=== PATIENT | female | born 1970 | race Caucasian/White ===

== ENCOUNTER → 2018-12-18 | Outpatient (CLI) | payer OTHER ==
[2018-12-18 18:29] LABS: Calcium 9.2 mg/dL (8.7-10.3); Magnesium 1.8 mg/dL (1.5-2.4); Phosphorus 4.5 mg/dL (2.4-5.1); Potassium 4.5 mmol/L (3.5-5.5)
== END | disposition home or self-care (01) ==
LOC: LABWHC1 13:58
PROVIDERS: ATTEND Psychiatry & Neurology Neurology
DX: M62.838 Other muscle spasm (principal)
CPT/HCPCS: 36415; 82310; 82607; 83735; 84100; 84132; 84295

== ENCOUNTER 2019-03-03 22:14 | Emergency (ER) | payer OTHER ==
[2019-03-03 22:30] VITALS: TEMP 98.4
[2019-03-03 22:47] LABS: Glucose,Whole Blood 124 mg/dL (75-99)
[2019-03-03] MEDS ORDERED: SODIUM CHLORIDE 0.9% 1,000 ML IV ONE (23:40)
[2019-03-03 23:52] LABS: Basophils % (A) 1 %; Eosinophils # (A) 0.1 k/uL (0-0.7); Eosinophils % (A) 2 %; HCT 37.9 % (34.0-46.0); Lymphocytes # (A) 1.6 k/uL (1.0-4.8); Lymphocytes % (A) 34 %; MCH 29.2 pg (25.0-35.0); MCHC 34.3 g/dL (31.0-37.0); MCV 85.3 fL (80.0-100.0); Mean Platelet Volume 8.1; Monocytes # (A) 0.3 k/uL (0-1.0); Monocytes % (A) 7 %; Neutrophils # (A) 2.4 k/uL (1.3-7.7); Neutrophils % (A) 54 %; Platelet Count 231 k/uL (150-450); RBC 4.45 m/uL (3.80-5.40); RDW 15.8 % (11.5-15.5); WBC 4.5 k/uL (3.8-10.6)
[2019-03-04 00:01] LABS: ALT 15 U/L (4-34); AST 18 U/L (14-36); African American GFR (CKD) >90 (>60 ml/min/1.73 sqM); Alkaline Phosphatase 70 U/L (38-126); Anion Gap 8 mmol/L; Blood Urea Nitrogen 14 mg/dL (7-17); Calcium 9.6 mg/dL (8.4-10.2); Carbon Dioxide 25 mmol/L (22-30); Chloride 106 mmol/L (98-107); Glucose 102 mg/dL (74-99); Non-African American GFR(CKD) >90 (>60 ml/min/1.73 sqM); Sodium 139 mmol/L (137-145); Total Bilirubin 0.3 mg/dL (0.2-1.3); Total Protein 6.8 g/dL (6.3-8.2)
[2019-03-04] MEDS ORDERED: ONDANSETRON 4 MG ODT STARTER PACK 2 TAB BTL PO STA (01:18)
--- NOTE | 2019-03-04 01:18 | ED ---
Recheck HPI - General Chief Complaint: Recheck/Abnormal Lab/Rx Stated Complaint: Rectal Bleeding Time Seen by Provider: 03/03/19 22:35 Source: patient Mode of arrival: ambulatory Limitations: no limitations - History of Present Illness Initial Comments: Deborah is an obese 48-year-old female who presents the ER today for evaluation of multiple complaints primary patient is concerned that she is dehydrated. Patient reports she is just not been feeling well she hasn't been eating or drinking well for 2-3 weeks. She states that she weighed herself 2 weeks ago and was 243 pounds but today was only 231. She states that she's been drinking plenty of fluids but just doesn't have any appetite for solid foods. She denies any abdominal pain does report some nausea but states even the thought of food makes her feel somewhat nauseated. She's had no episodes of vomiting. Patient also notes that with her bowel movements she has noticed some bright red bleeding when wiping and has never had this in the past and has no history of hemorrhoids that she is aware of. - Related Data Home Medications Medication Instructions Recorded Confirmed Cyclobenzaprine [Flexeril] 20 mg PO HS 06/02/14 08/26/14 Desvenlafaxine Succinate [Pristiq 50 mg PO HS 06/02/14 08/26/14 ER] Folic Acid 1 mg PO DAILY 06/02/14 08/26/14 Hydrocodone/Acetaminophen [[place] 1 each PO Q6H PRN 06/02/14 08/26/14 10-325] Ibuprofen [Motrin] 800 mg PO Q8HR PRN 06/02/14 08/26/14 Lurasidone [Latuda] 40 mg PO HS 06/02/14 08/26/14 Methotrexate Sodium [Methotrexate] 200 mg PO MURPHY 06/02/14 08/26/14 Oxybutynin Chloride [Ditropan] 5 mg PO BID 06/02/14 08/26/14 Pregabalin [Lyrica] 150 mg PO BID 06/02/14 08/26/14 Timolol 0.25% Ophth Soln [Timoptic] 1 drop BOTH EYES BID 06/02/14 08/26/14 Allergies Allergy/AdvReac Type Severity Reaction Status Date / Time No Known Allergies Allergy Verified 03/03/19 22:30 Review of Systems ROS Statement: Those systems with pertinent positive or pertinent negative responses have been documented in the HPI. ROS Other: All systems not noted in ROS Statement are negative. Past Medical History Past Medical History: Rheumatoid Arthritis (RA) Additional Past Medical History / Comment(s): CARPAL TUNNEL AMANDA. Overactive Bladder. OPEN ANGLE GLAUCOMA History of Any Multi-Drug Resistant Organisms: None Reported Past Surgical History: Orthopedic Surgery Additional Past Surgical History / Comment(s): bilateral hand Past Psychological History: Bipolar, Depression Smoking Status: Current every day smoker Past Alcohol Use History: None Reported Past Drug Use History: None Reported General Exam - General Exam Comments Initial Comments: Physical Exam GENERAL: Patient is well-developed and well-nourished. Patient is nontoxic and well- hydrated and is in no distress. HENT: Normocephalic, Atraumatic. EYES: PERRL, EOMI PULMONARY: Unlabored respirations. No audible rales rhonchi or wheezing was noted. CARDIOVASCULAR: There is a regular rate and rhythm without any murmurs gallops or rubs. ABDOMEN: Soft and nontender with normal bowel sounds. SKIN: Skin is clear with no lesions or rashes and otherwise unremarkable. : To exam with internal and external hemorrhoids, some blood noted on hemorrhoid no active bleeding NEUROLOGIC: Patient is alert and oriented x3. Moving all extremities spontaneously MUSCULOSKELETAL: Normal extremities with adequate strength and full range of motion. No lower extremity swelling or edema. No calf tenderness. PSYCHIATRIC: Normal psychiatric evaluation. Limitations: no limitations Course Vital Signs 03/03/19 03/04/19 22:25 01:38 Temperature 98.4 F 98.4 F Pulse Rate 96 67 Respiratory 18 15 Rate Blood Pressure 127/77 108/82 O2 Sat by Pulse 99 99 Oximetry Medical Decision Making - Medical Decision Making The patient was seen and evaluated, history is obtained from the patient Physical exam is relatively unremarkable patient's abdomen is soft nontender she does not appear dehydrated labs were obtained and results ofsignificant abnormalities patient did receive IV fluids and reported feeling better upon reevaluation she was sleeping comfortably. Patient will be discharged home with some Zofran and advised follow-up with her primary care physician for reeva luation. - Lab Data Result diagrams: 03/03/19 22:40 03/03/19 22:40 Lab Results 01/04/20 01/04/20 01/04/20 Range/Units 22:40 22:40 22:45 WBC 4.5 (3.8-10.6) k/uL RBC 4.45 (3.80-5.40) m/uL Hgb 13.0 (11.4-16.0) gm/dL Hct 37.9 (34.0-46.0) % MCV 85.3 (80.0-100.0) fL MCH 29.2 (25.0-35.0) pg MCHC 34.3 (31.0-37.0) g/dL RDW 15.8 H (11.5-15.5) % Plt Count 231 (150-450) k/uL Neutrophils % 54 % Lymphocytes % 34 % Monocytes % 7 % Eosinophils % 2 % Basophils % 1 % Neutrophils # 2.4 (1.3-7.7) k/uL Lymphocytes # 1.6 (1.0-4.8) k/uL Monocytes # 0.3 (0-1.0) k/uL Eosinophils # 0.1 (0-0.7) k/uL Basophils # 0.0 (0-0.2) k/uL Sodium 139 (137-145) mmol/L Potassium 4.0 (3.5-5.1) mmol/L Chloride 106 (98-107) mmol/L Carbon Dioxide 25 (22-30) mmol/L Anion Gap 8 mmol/L BUN 14 (7-17) mg/dL Creatinine 0.70 (0.52-1.04) mg/dL Est GFR (CKD-EPI)AfAm >90 (>60 ml/min/1.73 sqM) Est GFR (CKD-EPI)NonAf >90 (>60 ml/min/1.73 sqM) Glucose 102 H (74-99) mg/dL POC Glucose (mg/dL) 124 H (75-99) mg/dL POC Glu Bridge Crane Operator ID Fetterly, Padmaja Calcium 9.6 (8.4-10.2) mg/dL Magnesium 2.0 (1.6-2.3) mg/dL Total Bilirubin 0.3 (0.2-1.3) mg/dL AST 18 (14-36) U/L ALT 15 (4-34) U/L Alkaline Phosphatase 70 (38-126) U/L Total Protein 6.8 (6.3-8.2) g/dL Albumin 4.0 (3.5-5.0) g/dL Disposition Clinical Impression: Nausea, Bleeding hemorrhoid Disposition: HOME SELF-CARE Condition: Stable Instructions (If sedation given, give patient instructions): Hemorrhoids (ED), Acute Nausea and Vomiting (ED) Is patient prescribed a controlled substance at d/c from ED?: No Referrals: Marcos Coppola DO [Primary Care Provider] - 1-2 days
[2019-03-04 01:41] VITALS: BP 108/82; PULSE 67; RESP 15
== END 2019-03-04 01:38 | disposition home or self-care (01) ==
LOC: EC 22:14
DX: K64.4 Residual hemorrhoidal skin tags (principal); K64.8 Other hemorrhoids; R11.0 Nausea; M06.9 Rheumatoid arthritis, unspecified; F31.9 Bipolar disorder, unspecified; F17.200 Nicotine dependence, unspecified, uncomplicated; Z79.899 Other long term (current) drug therapy
CPT/HCPCS: 36415; 80053; 83735; 85025; 99283; 96360; 96361; S0119

== ENCOUNTER → 2020-06-09 | Outpatient (CLI) | payer OTHER ==
--- NOTE | 2020-06-09 14:40 | MM ---
Reason for exam: screening (asymptomatic). Baseline mammogram. Physical Findings: Nurse Summary: 1.5cm nodule in the right breast at 2 o'clock (nurse db). MG 3D Diag Mammo W/Cad AMANDA Bilateral CC and MLO view(s) were taken. The breast tissue is heterogeneously dense. This may lower the sensitivity of mammography. Finding: There is a 16 mm oval mass in the right breast. Small nodularity in the left breast upper outer quadrant. These results were verbally communicated with the patient and result sheet given to the patient on 06/09/20. ASSESSMENT: Incomplete: need additional imaging evaluation, BI-RAD 0 RECOMMENDATION: Ultrasound of both breasts.
--- NOTE | 2020-06-09 14:50 | USB ---
Reason for exam: additional evaluation requested from abnormal screening. Physical Findings: Breast exam preformed at baseline screening. US Breast BILAT Technologist: Joanna Michelle Right complete breast ultrasound includes all four quadrants, the retroareolar region and axilla. Finding demonstrates a 0.8 x 0.7 x 0.7cm round lesion at 2 o'clock, a 1.2 x 0.7 x 0.6cm oval lesion at 2 o'clock, a 2.1 x 1.5 x 1.2cm irregular, hypoechoic lesion at 4 o'clock non-simple cyst versus solid mass, FNA +/- biopsy advised, a 1.7 x 1.1 x 0.5cm oval, lobular, mixed lesion at 5 o'clock, a 0.8 x 0.5 x 0.6cm round, mixed lesion at 5 o'clock, 2.3 x 1.1 x 0.9cm cortical thickening at the axilla and a 1.5 x 0.8 x 0.8cm lymph node with cortical thickening 4.6mm at 11 o'clock. Advise sampling one of right axillary lymph nodes if persists. Left complete breast ultrasound includes all four quadrants, the retroareolar region and axilla. Finding demonstrates a 1.2 x 1.0 x 0.5cm lesion at 1 o'clock, a 0.5 x 0.5 x 0.4cm benign lymph node at 2 o'clock, a 0.9 x 0.5 x 0.5cm lobular lesion at 7 o'clock no vascularity through transmission and a 1.1 x 0.8 x 0.5cm oval lesion at 1 o'clock. These results were verbally communicated with the patient and result sheet given to the patient on 06/09/20. ASSESSMENT: Suspicious, BI-RAD 4 RECOMMENDATION: Aspiration of the right breast. Ultrasound core biopsy of both breasts. (right 4 o'clock, right axilla, left 7 o'clock) Called Dr. Portillo's office with mammographic findings and has scheduled an appointment for the patient for 06/20/20 at 12:[address] Guerra. Biopsy scheduled for 06/23/20 at 1:00. PRELIMINARY REPORT CALLED AND FAXED TO DR. GUERRA ON 06/09/20.
== END | disposition home or self-care (01) ==
LOC: RADMAMWWP 08:58
PROVIDERS: ATTEND Internal Medicine
DX: N63.10 Unspecified lump in the right breast, unspecified quadrant (principal); N63.20 Unspecified lump in the left breast, unspecified quadrant
CPT/HCPCS: 77066; 76641; G0279; 77062

== ENCOUNTER 2023-01-16 13:58 | Emergency (ER) | payer OTHER ==
[2023-01-16 14:17] VITALS: BP 160/98; PULSE 96; RESP 18; TEMP 98
[2023-01-16] MEDS ORDERED: ALPRAZolam 1 MG TAB PO STA ×2 (14:23→14:31)
--- NOTE | 2023-01-16 14:31 | ED ---
General Adult HPI - General Chief complaint: Psychiatric Symptoms Stated complaint: anxiety Time Seen by Provider: 01/16/23 14:09 Source: patient, RN notes reviewed Mode of arrival: ambulatory Limitations: no limitations - History of Present Illness Initial comments: Patient is a pleasant 52-year-old female presenting to the emergency department with concerns for her anxiety. He should has chronic anxiety. Patient states last time she was at her doctor's office she got into it with the nurse and her doctor said he would no longer be her doctor. Patient is requesting anxiety medicine. Patient states she is on Xanax 2 mg. Patient has gotten a new doctor however not able to get in yet. Patient does have an oncologist and will try to follow-up with him for further anxiety medication. - Related Data Home Medications Medication Instructions Recorded Confirmed Desvenlafaxine Succinate [Pristiq 50 mg PO HS 06/02/14 06/30/22 ER] Ibuprofen [Motrin] 800 mg PO Q8HR PRN 06/02/14 06/30/22 Lurasidone [Latuda] 40 mg PO HS 06/02/14 06/30/22 ALPRAZolam [Xanax] 1 mg PO Q8H PRN 06/09/22 06/30/22 Lactulose 10 gm PO DIRECTED PRN 06/09/22 06/30/22 Omeprazole [PriLOSEC] 10 mg PO DAILY 06/09/22 06/30/22 buPROPion [Wellbutrin] 75 mg PO BID 06/09/22 06/30/22 oxyCODONE-APAP 10-325MG [Percocet 1 tab PO Q6HR PRN 06/09/22 06/30/22 10-325 mg] Allergies Allergy/AdvReac Type Severity Reaction Status Date / Time No Known Allergies Allergy Verified 01/16/23 14:08 Review of Systems ROS Statement: Those systems with pertinent positive or pertinent negative responses have been documented in the HPI. ROS Other: All systems not noted in ROS Statement are negative. Constitutional: Denies: fever Eyes: Denies: eye pain ENT: Denies: ear pain Cardiovascular: Denies: chest pain Psychiatric: Reports: anxiety Past Medical History Past Medical History: Asthma, Cancer, GERD/Reflux, Rheumatoid Arthritis (RA) Additional Past Medical History / Comment(s): CARPAL TUNNEL AMANDA. Overactive Bladder. OPEN ANGLE GLAUCOMA, Breast Cancer 2021 History of Any Multi-Drug Resistant Organisms: None Reported Past Surgical History: Orthopedic Surgery Additional Past Surgical History / Comment(s): bilateral hand Past Anesthesia/Blood Transfusion Reactions: No Reported Reaction Past Psychological History: Bipolar, Depression Smoking Status: Current some day smoker Past Alcohol Use History: None Reported Past Drug Use History: Marijuana General Exam Limitations: no limitations General appearance: alert Head exam: Present: normocephalic Eye exam: Present: normal appearance Neck exam: Present: normal inspection Respiratory exam: Present: normal lung sounds bilaterally Cardiovascular Exam: Present: regular rate, normal rhythm GI/Abdominal exam: Present: soft. Absent: tenderness Extremities exam: Present: normal inspection Neurological exam: Present: alert Psychiatric exam: Present: anxious Skin exam: Present: normal color Course Vital Signs 01/16/23 14:04 Temperature 98.0 F Pulse Rate 96 Respiratory 18 Rate Blood Pressure 160/98 O2 Sat by Pulse 98 Oximetry Medical Decision Making - Medical Decision Making Was pt. sent in by a medical professional or institution (, PA, WELCOME DESK AGENT, urgent care, hospital, or jail...) When possible be specific @ -No Did you speak to anyone other than the patient for history (EMS, parent, family, police, friend...)? What history was obtained from this source @ -No Did you review nursing and triage notes (agree or disagree)? Why? @ -I reviewed and agree with nursing and triage notes Were old charts reviewed (outside hosp., previous admission, EMS record, old EKG, old radiological studies, urgent care reports/EKG's, jail records)? Report findings @ -Previous medications reviewed Differential Diagnosis (chest pain, altered mental status, abdominal pain women, abdominal pain men, vaginal bleeding, weakness, fever, dyspnea, syncope, headache, dizziness, GI bleed, back pain, seizure, CVA, palpatations, mental health, musculoskeletal)? @ -Differential Mental Health Depression, anxiety, bipolar, psychosis, schizophrenia, borderline personality, situational depression, adjustment disorder, behavioral disorder, brain tumor, malingering, substance abuse, encephalopathy, medication reaction, dementia, hypothyroidism, degenerative neurologic disorder, lupus.... This is not meant to be all-inclusive list EKG interpreted by me (3pts min.). @ -As above X-rays interpreted by me (1pt min.). @ -None done CT interpreted by me (1pt min.). @ -None done U/S interpreted by me (1pt. min.). @ -None done What testing was considered but not performed or refused? (CT, X-rays, U/S, labs)? Why? @ -None What meds were considered but not given or refused? Why? @ -None Did you discuss the management of the patient with other professionals (professionals i.e. DrDonnie, PA, WELCOME DESK AGENT, lab, RT, psych nurse, social worker health services, cartography professor, teacher, electorate officer, case management assistant)? Give summary @ -No Was smoking cessation discussed for >3mins.? @ -No Was critical care preformed (if so, how long)? @ -No Were there social determinants of health that impacted care today? How? (Homelessness, low income, unemployed, alcoholism, drug addiction, transportation, low edu. Level, literacy, decrease access to med. care, fdc, rehab)? @ -No Was there de-escalation of care discussed even if they declined (Discuss DNR or withdrawal of care, Hospice)? DNR status @ -No What co-morbidities impacted this encounter? (DM, HTN, Smoking, COPD, CAD, Cancer, CVA, ARF, Chemo, Hep., AIDS, mental health diagnosis, sleep apnea, morbi d obesity)? @ -None Was patient admitted / discharged? Hospital course, mention meds given and route, prescriptions, significant lab abnormalities, going to OR and other pertinent info. @ -Discussion had with patient. Patient will be given Xanax 2 mg and advised to take only half of it at this time. Patient given an extra 2 mg of Xanax to take home. Patient advised to cut this in half and wean herself off. Patient does have an appointment with oncology Tuesday and advised to discuss this with her doctor that point. Undiagnosed new problem with uncertain prognosis? @ -No Drug Therapy requiring intensive monitoring for toxicity (Heparin, Nitro, Insulin, Cardizem)? @ -No Were any procedures done? @ -No Diagnosis/symptom? @ -Anxiety Acute, or Chronic, or Acute on Chronic? @ -Acute Uncomplicated (without systemic symptoms) or Complicated (systemic symptoms)? @ -default Side effects of treatment? @ -No Exacerbation, Progression, or Severe Exacerbation? @ -No Poses a threat to life or bodily function? How? (Chest pain, USA, MS, pneumonia, PE, COPD, DKA, ARF, appy, cholecystitis, CVA, Diverticulitis, Homicidal, Suicidal, threat to staff... and all critical care pts) @ -No Disposition Clinical Impression: Acute anxiety Disposition: HOME SELF-CARE Condition: Stable Instructions (If sedation given, give patient instructions): Generalized Anxiety Disorder (ED) Additional Instructions: Please follow-up with oncology Tuesday as planned. Have discussion with your doctor at that point regarding medication. Please do follow-up with her new primary care physician in the next one or 2 days for recheck and discuss medication at that point as well. Return for worsening symptoms, thoughts of self-harm or other concerns. Is patient prescribed a controlled substance at d/c from ED?: No Referrals: None,Stated [Primary Care Provider] - 1-2 days Andres Epstein [STAFF PHYSICIAN] - 1-2 days Lukas Marshall MD [STAFF PHYSICIAN] - 1-2 days Forms: Area PCPs Time of Disposition: 14:31
== END 2023-01-16 14:50 | disposition home or self-care (01) ==
LOC: EC 13:58
DX: F41.9 Anxiety disorder, unspecified (principal); J45.909 Unspecified asthma, uncomplicated; F31.9 Bipolar disorder, unspecified; K21.9 Gastro-esophageal reflux disease without esophagitis; F17.200 Nicotine dependence, unspecified, uncomplicated; Z79.899 Other long term (current) drug therapy
CPT/HCPCS: 99285

== ENCOUNTER 2024-05-23 14:03 | Emergency (ER) | payer MEDICARE, OTHER ==
[2024-05-23 14:10] VITALS: TEMP 98.4
--- NOTE | 2024-05-23 16:26 | ED ---
General Adult HPI - General Chief complaint: Extremity Problem,Nontraumatic Stated complaint: R arm edema Time Seen by Provider: 05/23/24 14:26 Source: patient Mode of arrival: ambulatory Limitations: no limitations - History of Present Illness Initial comments: Patient is a 54-year-old female with a past medical history of metastatic breast cancer presenting today for right upper extremity swelling. Patient states she had a biopsy of her right axilla done 3 weeks ago and ever since then she has had worsening right upper extremity swelling. Over last 2 days she has had worsening pain in the right upper extremity and axilla uncontrolled with home Percocet. She was sent in by her PCP out of concern for infection at the surgical site. Patient denies fevers chills, nausea vomiting, chest pain or shortness of breath, abdominal pain. No history prior PE/DVT, no hemoptysis, is a non-smoker. States she does have a recurrence of her breast cancer. The biopsy that was recently done and a scheduled for outpatient PET scan. There is been no redness or discharge from her recent surgical site - Related Data Home Medications Medication Instructions Recorded Confirmed Desvenlafaxine Succinate [Pristiq 50 mg PO HS 06/02/14 06/30/22 ER] Ibuprofen [Motrin] 800 mg PO Q8HR PRN 06/02/14 06/30/22 Lurasidone [Latuda] 40 mg PO HS 06/02/14 06/30/22 ALPRAZolam [Xanax] 1 mg PO Q8H PRN 06/09/22 06/30/22 Lactulose 10 gm PO DIRECTED PRN 06/09/22 06/30/22 Omeprazole [PriLOSEC] 10 mg PO DAILY 06/09/22 06/30/22 buPROPion [Wellbutrin] 75 mg PO BID 06/09/22 06/30/22 oxyCODONE-APAP 10-325MG [Percocet 1 tab PO Q6HR PRN 06/09/22 06/30/22 10-325 mg] Allergies Allergy/AdvReac Type Severity Reaction Status Date / Time morphine Allergy Rash/Hives Verified 05/23/24 16:08 Review of Systems ROS Statement: Those systems with pertinent positive or pertinent negative responses have been documented in the HPI. ROS Other: All systems not noted in ROS Statement are negative. Past Medical History Past Medical History: Asthma, Cancer, GERD/Reflux, Rheumatoid Arthritis (RA) Additional Past Medical History / Comment(s): CARPAL TUNNEL AMANDA. Overactive Bladder. OPEN ANGLE GLAUCOMA, Breast Cancer 2021 History of Any Multi-Drug Resistant Organisms: None Reported Past Surgical History: Orthopedic Surgery Additional Past Surgical History / Comment(s): bilateral hand Past Anesthesia/Blood Transfusion Reactions: No Reported Reaction Past Psychological History: Bipolar, Depression Smoking Status: Current some day smoker Past Alcohol Use History: None Reported Past Drug Use History: Marijuana General Exam - General Exam Comments Initial Comments: PE: CONSTITUTIONAL: [no apparent distress, well appearing tearful] SKIN: [warm, dry, no jaundice, hives or petechiae, no overlying erythema of the right upper extremity, biopsy site was evaluated with carpenter's helper, Yessica RN, no palpable fluctuance no erythema, no drainage shows well-healing incision small mount of bruising present lymphadenopathy palpable] EYES:[ pupils are equally round, extraocular movements intact without nystagmus, clear conjunctiva, non-icteric sclera] HENT: [normocephalic, atraumatic, moist mucus membranes, oropharynx clear without exudates] NECK: , [Full range of motion, normal appearance] PULMONARY: [clear to auscultation without wheezes, rhonchi, or rales, normal excursion, no accessory muscle use and no stridor] CARDIOVASCULAR:[ regular rate, rhythm, normal S1 and S2. No appreciated murmurs, rubs or gallops. Strong radial pulses with intact distal perfusion. No lower extremity edema] GASTROINTESTINAL: [soft, active bowel sounds throughout, non-tender, non- distended, no palpable masses, no rebound or guarding. No hepatosplenomegaly] GENITOURINARY: MUSCULOSKELETAL: [Extremities have no gross deformity, no edema, redness, or swelling. No calf swelling ] NEUROLOGIC: [_a/o x 3, GCS 15, normal mentation and speech. Moves all extremities x 4 without motor or sensory deficit] PSYCHIATRIC:[ _normal mood and affect, thought process is clear and linear] Limitations: no limitations Course Vital Signs 05/23/24 14:07 Temperature 98.4 F Pulse Rate 80 Respiratory 17 Rate Blood Pressure 123/76 O2 Sat by Pulse 96 Oximetry Medical Decision Making - Medical Decision Making Was pt. sent in by a medical professional or institution (Dr., PA, DIELECTRIC TESTING MACHINE OPERATOR, urgent care, hospital, or [facility]...) When possible be specific @Patient by her primary care provider for infection rule out due to right upper extremity swelling Did you speak to anyone other than the patient for history (EMS, parent, family, police, friend...)? What history was obtained from this source @ -[No] Did you review nursing and triage notes (agree or disagree)? Why? @ -[I reviewed nursing and triage notes] Were old charts reviewed (outside hosp., previous admission, EMS record, old EKG, old radiological studies, urgent care reports/EKG's, [facility] records)? Report findings @ -[Medical records reviewed]Recent imaging most recent imaging was a breast ultrasound on 06/09/2020, ultimately lesions were noted and sampling of the right axillary lymph nodes was recommended Differential Diagnosis (chest pain, altered mental status, abdominal pain women, abdominal pain men, vaginal bleeding, weakness, fever, dyspnea, syncope, headache, dizziness, GI bleed, back pain, seizure, CVA, palpatations, mental health, musculoskeletal)? @Differential diagnose remains broad over top considerations include DVT, cellulitis, lymphedema, abscess this is not all-inclusive list EKG interpreted by me (3pts min.). @ -[As above] X-rays interpreted by me (1pt min.). @ -[None done] CT interpreted by me (1pt min.). @ -[None done] U/S interpreted by me (1pt. min.). @ -[None done] What testing was considered but not performed or refused? (CT, X-rays, U/S, labs)? Why? @ -[None] What meds were considered but not given or refused? Why? @ -[None] Did you discuss the management of the patient with other professionals (professionals i.e. , PA, DIELECTRIC TESTING MACHINE OPERATOR, lab, RT, psych nurse, social media marketing manager, fire extinguisher repairer, teacher, aboriginal home school liaison officer, shoe parts caser)? Give summary @ -[No] Was smoking cessation discussed for >3mins.? @ -[No] Was critical care preformed (if so, how long)? @ -[No] Were there social determinants of health that impacted care today? How? (Homelessness, low income, unemployed, alcoholism, drug addiction, transportation, low edu. Level, literacy, decrease access to med. care, correction, rehab)? @ -[No] Was there de-escalation of care discussed even if they declined (Discuss DNR or withdrawal of care, Hospice)? @ -[No] What co-morbidities impacted this encounter? (DM, HTN, Smoking, COPD, CAD, Cancer, CVA, ARF, Chemo, Hep., AIDS, mental health diagnosis, sleep apnea, morbid obesity)? @ -[None] Was patient admitted / discharged? Hospital course, mention meds given and route, prescriptions, significant lab abnormalities, going to OR and other pertinent info. @ -[hospital course] this is a pleasant 54 female presenting for atraumatic right upper extremity swelling. Plan for ultrasound DVT in right axilla, basic labs, pain control Undiagnosed new problem with uncertain prognosis? @ -[No] Drug Therapy requiring intensive monitoring for toxicity (Heparin, Nitro, Insulin, Cardizem)? @ -[No] Were any procedures done? @ -[No] Diagnosis/symptom? @ -[default] Acute, or Chronic, or Acute on Chronic? @ -[default] Uncomplicated (without systemic symptoms) or Complicated (systemic symptoms)? @ -[default] Side effects of treatment? @ -[No] Exacerbation, Progression, or Severe Exacerbation? @ -[No] Poses a threat to life or bodily function? How? (Chest pain, [place], NH, pneumonia, PE, COPD, DKA, ARF, appy, cholecystitis, CVA, Diverticulitis, Homicidal, Suicidal, threat to staff... and all critical care pts) @ -[No] - Lab Data Result diagrams: 05/23/24 16:36 05/23/24 16:36 Lab Results 05/23/24 05/23/24 05/23/24 Range/Units 16:36 16:36 16:36 WBC 4.2 (3.8-10.6) k/uL RBC 4.87 (3.80-5.40) m/uL Hgb 14.6 (11.4-16.0) gm/dL Hct 43.5 (34.0-46.0) % MCV 89.4 (80.0-100.0) fL MCH 29.9 (25.0-35.0) pg MCHC 33.5 (31.0-37.0) g/dL RDW 12.8 (11.5-15.5) % Plt Count 271 (150-450) k/uL MPV 7.2 Neutrophils % 63 % Lymphocytes % 27 % Monocytes % 6 % Eosinophils % 2 % Basophils % 0 % Neutrophils # 2.7 (1.3-7.7) k/uL Lymphocytes # 1.1 (1.0-4.8) k/uL Monocytes # 0.2 (0-1.0) k/uL Eosinophils # 0.1 (0-0.7) k/uL Basophils # 0.0 (0-0.2) k/uL PT 9.9 L (10.0-12.5) sec INR 0.9 (<1.2) APTT 23.3 (22.0-30.0) sec Sodium 139 (137-145) mmol/L Potassium 4.7 (3.5-5.1) mmol/L Chloride 101 (98-107) mmol/L Carbon Dioxide 31 H (22-30) mmol/L Anion Gap 7 mmol/L BUN 19 H (7-17) mg/dL Creatinine 0.66 (0.52-1.04) mg/dL Est GFR (CKD-EPI)AfAm >90 (>60 ml/min/1.73 sqM) Est GFR (CKD-EPI)NonAf >90 (>60 ml/min/1.73 sqM) Glucose 72 L (74-99) mg/dL Calcium 9.8 (8.4-10.2) mg/dL Total Bilirubin 0.3 (0.2-1.3) mg/dL AST 16 (14-36) U/L ALT 14 (4-34) U/L Alkaline Phosphatase 59 (38-126) U/L C-Reactive Protein <0.5 (<1.0) mg/dL Total Protein 7.3 (6.3-8.2) g/dL Albumin 4.5 (3.5-5.0) g/dL Disposition Clinical Impression: Swelling of right upper extremity, Lymphedema Disposition: HOME SELF-CARE Condition: Stable Instructions (If sedation given, give patient instructions): Lymphedema (ED) Additional Instructions: Every disease is a spectrum and a small chance still exists that a serious condition could develop, for this reason, please monitor yourself closely for new, changing or worsening symptoms, symptoms that do not improve in 48 hours, redness, discharge or swelling in your area of pain difficulty in breathing or coughing up blood, fever, inability to tolerate/keep down fluids or your medications, inability to follow up with outpatient providers as instructed and should you experience these symptoms or should you have any further concerns for your wellbeing please return to the ED or call 911 immediately. PLEASE call your primary care physician as soon as possible to arrange / discuss plan for followup appointment. Appointment in the next 1-3 days is strongly encouraged if possible. PLEASE let us know here before you leave if there is anything further we can do to be of any assistance. Take care and feel Better! Is patient prescribed a controlled substance at d/c from ED?: No Referrals: Mani Malik MD [Primary Care Provider] - 1-2 days
[2024-05-23] MEDS: clonazePAM 0.5 MG TAB PO STA (16:28)
[2024-05-23] MEDS: HYDROmorphone 1 MG/ML 1 ML SYRINGE IVP STA ×2 (16:29→19:02)
[2024-05-23] MEDS: ONDANSETRON 4 MG/2 ML VIAL IVP STA (16:29)
[2024-05-23 16:45] LABS: Basophils % (A) 0 %; Eosinophils # (A) 0.1 k/uL (0-0.7); Eosinophils % (A) 2 %; HCT 43.5 % (34.0-46.0); HGB 14.6 gm/dL (11.4-16.0); Lymphocytes # (A) 1.1 k/uL (1.0-4.8); Lymphocytes % (A) 27 %; MCH 29.9 pg (25.0-35.0); MCHC 33.5 g/dL (31.0-37.0); MCV 89.4 fL (80.0-100.0); Mean Platelet Volume 7.2; Monocytes # (A) 0.2 k/uL (0-1.0); Monocytes % (A) 6 %; Neutrophils # (A) 2.7 k/uL (1.3-7.7); Neutrophils % (A) 63 %; Platelet Count 271 k/uL (150-450); RBC 4.87 m/uL (3.80-5.40); RDW 12.8 % (11.5-15.5); WBC 4.2 k/uL (3.8-10.6)
[2024-05-23 17:00] LABS: ALT 14 U/L (4-34); AST 16 U/L (14-36); African American GFR (CKD) >90 (>60 ml/min/1.73 sqM); Albumin 4.5 g/dL (3.5-5.0); Alkaline Phosphatase 59 U/L (38-126); Anion Gap 7 mmol/L; Blood Urea Nitrogen 19 mg/dL (7-17); C Reactive Protein <0.5 mg/dL (<1.0); Calcium 9.8 mg/dL (8.4-10.2); Carbon Dioxide 31 mmol/L (22-30); Chloride 101 mmol/L (98-107); Glucose 72 mg/dL (74-99); INR 0.9 (<1.2); Non-African American GFR(CKD) >90 (>60 ml/min/1.73 sqM); Partial Thromboplastin Time 23.3 sec (22.0-30.0); Potassium 4.7 mmol/L (3.5-5.1); Prothrombin Time 9.9 sec (10.0-12.5); Sodium 139 mmol/L (137-145); Total Bilirubin 0.3 mg/dL (0.2-1.3); Total Protein 7.3 g/dL (6.3-8.2)
--- NOTE | 2024-05-23 17:41 | US ---
EXAMINATION TYPE: US venous doppler duplex UE RT DATE OF EXAM: 05/23/2024 COMPARISON: NONE CLINICAL INDICATION: Female, 54 years old with history of RUE swelling s/p lymph node biopsy; RUE swe lling. No hx of DVT. Patient does not take blood thinners. Patient states she has metastatic breast c ancer. She had a lymph node biopsy in her axilla about a month ago. TECHNIQUE: Grayscale, color Doppler and spectral Doppler imaging of the upper extremity. SIDE PERFORMED: Right VESSELS IMAGED: IJV Subclavian Vein Axilla Vein Brachial Vein(s) Radial Paired Veins Ulnar Paired Veins Cephalic Vein* Basilic Vein* (*superficial vessels) FINDINGS: Right Arm: Exam is extremely limited due to swelling of the arm. Subclavian vein appears small- limited visibility and evaluation of subclavian vein. Difficult to get wall to wall color filling in subclavian. ?Consider additional imaging modality to evaluate. IMPRESSION: Nondiagnostic evaluation of the right subclavian vein. Other venous structures of the rig ht upper extremity show no acute deep or superficial venous thrombosis. [facility], , 05/23/2024 5:38 PM
--- NOTE | 2024-05-23 17:44 | US ---
EXAMINATION TYPE: US axilla RT DATE OF EXAM: 05/23/2024 COMPARISON: NONE CLINICAL INDICATION: Female, 54 years old with history of RUE swell s/p lymph node biopsy, eval for a bscess; Patient had lymph node biopsy at outside facility about a month ago. R/O abscess. Patient sta janet she has metastatic breast cancer. TECHNIQUE: FINDINGS: Scanned right axilla. -Hypoechoic area seen with minimal vascularity: 2.2 x 1.8 x 1.9 cm. Cortex measures 10 mm. -Second hypoechoic area seen with hyperechoic center: 1.4 x 1.3 x 0.8 cm. -Hypoechoic area with posterior shadowing seen superior to other measured areas: 0.8 x 0.9 x 0.9 cm. IMPRESSION: Suspicious abnormal lymph nodes in the right axilla are present worrisome for malignancy . Correlate with biopsy results. No well-formed fluid collection or abscess is present. [facility], , 05/23/2024 5:42 PM
[2024-05-23 19:14] VITALS: BP 122/79; PULSE 96; RESP 20
== END 2024-05-23 19:14 | disposition home or self-care (01) ==
LOC: EC 14:03
DX: I89.0 Lymphedema, not elsewhere classified (principal); F17.200 Nicotine dependence, unspecified, uncomplicated; Z88.5 Allergy status to narcotic agent
CPT/HCPCS: 99285; 96374; 96375; 96376; 36415; 80053; 85025; 85610; 85730; 86140; 76882; 93971; J2405; J1171

== ENCOUNTER → 2024-05-25 | Outpatient (CLI) | payer OTHER ==
--- NOTE | 2024-05-25 16:04 | PE ---
EXAMINATION TYPE: PET CT fusion skull to thigh DATE OF EXAM: 05/25/2024 COMPARISON: NONE HISTORY: History of breast cancer diagnosed 2021 with metastatic recurrence in early 2024. TECHNIQUE: Following the intravenous administration of 10.89 mCi of F-18 FDG, whole body images are performed from top of skull base to the midthigh. Images are reviewed on the computer in the coronal , axial, and sagittal planes. Reconstructed rotating images are created on independent workstation a nd reviewed on the computer. A localization and attenuation correction CT is performed in conjuncti on with the PET scan. Blood glucose level equals 104. SCAN: Subsequent Scan FINDINGS: SKULL BASE AND NECK: Increased oral uptake is presumed physiologic. Similar uptake noted at level of the vocal cords. Asymmetric left lower cervical neck muscular uptake could reflect inflammatory proc ess. Correlate clinically. No suspicious hypermetabolic uptake. CHEST, MEDIASTINUM, AND HILAR REGION: Hypermetabolic 1.2 cm mass or lymph node in the right adnexal a xial image 110 has abnormal hypermetabolic uptake. Inferior to this there is larger lymph node or mas s with increased hypermetabolic uptake, max SUV is 11.59. There are nonspecific subcentimeter mildly hypermetabolic lymph nodes more medial and superior to this area. Max SUV is 5.85 on axial image 93 for reference. No additional areas of suspicious abnormal hypermetabolic uptake ABDOMEN AND PELVIS: Normal excretion. No abnormal hypermetabolic uptake. OSSEOUS STRUCTURES: No abnormal hypermetabolic uptake. OTHER CT: Prominent main pulmonary artery raises concern for underlying pulmonary hypertension. No si gnificant coronary artery calcifications. In the right pelvis there is 7.7 x 7.2 cm thin-walled cysti c lesion presumed ovarian in etiology. IMPRESSION: 1. There is local recurrence in the right axilla. No metastatic disease. 2. There is 7.7 cm cystic lesion in the right ovary without abnormal hypermetabolic uptake. Ovarian n eoplasm is suspected. Advise gynecology oncology referral to further evaluate and workup. [facility], , 05/25/2024 4:02 PM
== END | disposition home or self-care (01) ==
LOC: RADPETMAIN 14:06
PROVIDERS: ATTEND Radiology Radiation Oncology
DX: C50.811 Malignant neoplasm of overlapping sites of right female breast (principal); N83.201 Unspecified ovarian cyst, right side; I27.20 Pulmonary hypertension, unspecified
CPT/HCPCS: 78815; A9552

== ENCOUNTER 2024-09-11 15:24 | Observation (INO) | payer MEDICARE, OTHER ==
[2024-09-11] MEDS: HYDROmorphone 1 MG/ML 1 ML SYRINGE IVP STA (17:26)
[2024-09-11 17:30] LABS: Basophils # (A) 0.02 10*3/uL (0.00-0.10); Basophils % (A) 0.5 %; Eosinophils # (A) 0.11 10*3/uL (0.04-0.35); Eosinophils % (A) 3.0 %; HCT 38.3 % (37.2-46.3); HGB 13.1 g/dL (12.0-15.0); Lymphocytes # (A) 0.92 10*3/uL (0.90-5.00); Lymphocytes % (A) 24.7 %; MCH 30.6 pg (27.0-32.0); MCHC 34.2 g/dL (32.0-37.0); MCV 89.5 fL (80.0-97.0); Monocytes # (A) 0.41 10*3/uL (0.20-1.00); Monocytes % (A) 11.0 %; Neutrophils # (A) 2.22 10*3/uL (1.80-7.70); Neutrophils % (A) 59.7 %; Platelet Count 243 10*3/uL (140-440); RBC 4.28 10*6/uL (4.10-5.20); RDW 13.0 % (11.5-14.5); WBC 3.72 10*3/uL (4.50-10.00)
[2024-09-11 17:40] LABS: ALT 15 U/L (4-34); African American GFR (CKD) >90 (>60 ml/min/1.73 sqM); Albumin 3.8 g/dL (3.5-5.0); Anion Gap 8 mmol/L; Calcium 9.0 mg/dL (8.4-10.2); Carbon Dioxide 25 mmol/L (22-30); Chloride 106 mmol/L (98-107); Glucose 95 mg/dL (74-99); Non-African American GFR(CKD) >90 (>60 ml/min/1.73 sqM); Sodium 139 mmol/L (137-145); Total Protein 6.6 g/dL (6.3-8.2)
[2024-09-11 17:42] LABS: AST 35 U/L (14-36); Alkaline Phosphatase 52 U/L (38-126); Blood Urea Nitrogen 19 mg/dL (7-17); Potassium 5.4 mmol/L (3.5-5.1)
--- NOTE | 2024-09-11 18:08 | ED ---
Extremity Problem HPI - General Chief complaint: Extremity Problem,Nontraumatic Stated complaint: R arm swelling Time Seen by Provider: 09/11/24 15:30 Source: patient Mode of arrival: ambulatory Limitations: no limitations - History of Present Illness Initial comments: 54-year-old female with past medical history of breast cancer, lymph node r esection of the right axilla who presents to the emergency department reporting right arm swelling. Reports that she has chronic swelling in the right arm however it is gotten significantly worse. She is supposed to undergo radiation treatment however cannot lift her right arm above her head due to the pain. She is prescribed pain medications at home but states they have not been helping. She went into Dr. Cook office yesterday and spoke with him about her symptoms. She mentioned that she was feeling depressed and even suicidal because of her uncontrolled symptoms. He recommended that she go to the hospital for ultrasound of her right upper extremity to evaluate for clots. Patient denies history of blood clots. No fevers. She has not been wrapping the extremity. She denies any lower extremity edema. No other alleviating, precipitating or modifying factors - Related Data Home Medications Medication Instructions Recorded Confirmed Ibuprofen [Motrin] 800 mg PO Q8HR PRN 06/02/14 09/11/24 Albuterol Sulfate [Albuterol 2 puff INHALATION RT-Q4H PRN 09/11/24 09/11/24 Sulfate Hfa] Cyclobenzaprine [Flexeril] 10 mg PO TID PRN 09/11/24 09/11/24 Desvenlafaxine Succinate [Pristiq] 100 mg PO DAILY 09/11/24 09/11/24 Fluticasone Propion/Salmeterol 1 puff INHALATION RT-BID 09/11/24 09/11/24 [Advair Hfa 115-21 Mcg Inhaler] Lactulose 10 gm PO DAILY 09/11/24 09/11/24 Lurasidone HCl [Latuda] 120 mg PO DAILY 09/11/24 09/11/24 Montelukast [Singulair] 10 mg PO DAILY 09/11/24 09/11/24 Umeclidinium Brm/Vilanterol Tr 1 puff INHALATION RT-DAILY 09/11/24 09/11/24 [Anoro Ellipta 62.5-25 Mcg INH] buPROPion SR [Wellbutrin SR] 150 mg PO BID 09/11/24 09/11/24 clonazePAM [KlonoPIN] 2 mg PO TID 09/11/24 09/11/24 oxyCODONE-APAP 7.5-325MG [Percocet 2 tab PO TID 09/11/24 09/11/24 7.5-325 mg] traMADol HCL 50 mg PO TID PRN 09/11/24 09/11/24 Allergies Allergy/AdvReac Type Severity Reaction Status Date / Time morphine Allergy Rash/Hives Verified 09/11/24 18:10 Review of Systems ROS Statement: Those systems with pertinent positive or pertinent negative responses have been documented in the HPI. ROS Other: All systems not noted in ROS Statement are negative. Past Medical History Past Medical History: Asthma, Cancer, GERD/Reflux, Rheumatoid Arthritis (RA) Additional Past Medical History / Comment(s): CARPAL TUNNEL AMANDA. Overactive Bl adder. OPEN ANGLE GLAUCOMA, Breast Cancer 2021 History of Any Multi-Drug Resistant Organisms: None Reported Past Surgical History: Orthopedic Surgery Additional Past Surgical History / Comment(s): bilateral hand Past Anesthesia/Blood Transfusion Reactions: No Reported Reaction Past Psychological History: Bipolar, Depression Smoking Status: Current some day smoker Past Alcohol Use History: None Reported Past Drug Use History: Marijuana General Exam Limitations: no limitations General appearance: alert, in no apparent distress Head exam: Present: atraumatic, normocephalic, normal inspection Eye exam: Present: normal appearance, PERRL, EOMI. Absent: scleral icterus, conjunctival injection, periorbital swelling ENT exam: Present: normal exam, mucous membranes moist Neck exam: Present: normal inspection. Absent: tenderness, meningismus, lymphadenopathy Respiratory exam: Present: normal lung sounds bilaterally. Absent: respiratory distress, wheezes, rales, rhonchi, stridor Cardiovascular Exam: Present: regular rate, normal rhythm, normal heart sounds. Absent: systolic murmur, diastolic murmur, rubs, gallop, clicks GI/Abdominal exam: Present: soft, normal bowel sounds. Absent: distended, tenderness, guarding, rebound, rigid Extremities exam: Present: tenderness, normal capillary refill, other (Significant swelling to the forearm. Compartments remain soft without signs of ischemia). Absent: pedal edema, joint swelling, calf tenderness Back exam: Present: normal inspection Neurological exam: Present: alert, oriented X3, CN II-XII intact Psychiatric exam: Present: depressed Skin exam: Present: warm, dry, intact, normal color. Absent: rash Course Vital Signs 09/11/24 09/11/24 09/11/24 15:25 17:28 18:52 Temperature 97.9 F Pulse Rate 96 71 67 Respiratory 18 18 16 Rate Blood Pressure 110/68 112/68 120/93 O2 Sat by Pulse 98 97 99 Oximetry Medical Decision Making - Medical Decision Making Was pt. sent in by a medical professional or institution (, [facility], [facility]INE RIGGER, urgent care, hospital, or alf...) When possible be specific @ -Patient was sent in by Dr. Howard Did you speak to anyone other than the patient for history (EMS, parent, family, police, friend...)? What history was obtained from this source @ -spoke with Dr. howard for the history Did you review nursing and triage notes (agree or disagree)? Why? @ -I reviewed and agree with nursing and triage notes Were old charts reviewed (outside hosp., previous admission, EMS record, old EKG, old radiological studies, urgent care reports/EKG's, alf records)? Report findings @ -No old charts were reviewed Differential Diagnosis (chest pain, altered mental status, abdominal pain women, abdominal pain men, vaginal bleeding, weakness, fever, dyspnea, syncope, headache, dizziness, GI bleed, back pain, seizure, CVA, palpatations, mental health, musculoskeletal)? @ -Compartment syndrome, lymphedema, cellulitis EKG interpreted by me (3pts min.). @ -Not done X-rays interpreted by me (1pt min.). @ -None done CT interpreted by me (1pt min.). @ -None done U/S interpreted by me (1pt. min.). @ -Yes which demonstrates no DVT What testing was considered but not performed or refused? (CT, X-rays, U/S, labs)? Why? @ -None What meds were considered but not given or refused? Why? @ -None Did you discuss the management of the patient with other professionals (professionals i.e. , [facility], MARINE RIGGER, lab, RT, psych nurse, social and political studies professor, java swing developer, teacher, department of natural resources officer, home health care case manager)? Give summary @ -Spoke with Dr. Howard who would like the patient admitted for intractable pain Was smoking cessation discussed for >3mins.? @ -No Was critical care preformed (if so, how long)? @ -No Were there social determinants of health that impacted care today? How? (Homelessness, low income, unemployed, alcoholism, drug addiction, transportation, low edu. Level, literacy, decrease access to med. care, ch[facility], r ehab)? @ -No Was there de-escalation of care discussed even if they declined (Discuss DNR or withdrawal of care, Hospice)? DNR status @ -No What co-morbidities impacted this encounter? (DM, HTN, Smoking, COPD, CAD, Cancer, CVA, ARF, Chemo, Hep., AIDS, mental health diagnosis, sleep apnea, morbid obesity)? @ -Breast cancer Was patient admitted / discharged? Hospital course, mention meds given and route, prescriptions, significant lab abnormalities, going to OR and other pertinent info. @ -Upon arrival patient seen and evaluated in room 27. Thorough history and physical exam was performed. IV access was established. Pain medications were administered. Patient did have an ultrasound performed of her arm which demonstrates no DVT. I did call and speak with the patient's primary care janneth price. He recommended admission. I will place wound care and interventional radiology on consult. Patient admitted in stable condition Undiagnosed new problem with uncertain prognosis? @ -No Drug Therapy requiring intensive monitoring for toxicity (Heparin, Nitro, Insulin, Cardizem)? @ -No Were any procedures done? @ -No Diagnosis/symptom? @ -Severe lymphedema right upper extremity, history of breast cancer Acute, or Chronic, or Acute on Chronic? @ -Acute on chronic Uncomplicated (without systemic symptoms) or Complicated (systemic symptoms)? @ -Complicated Side effects of treatment? @ -No Exacerbation, Progression, or Severe Exacerbation? @ -No Poses a threat to life or bodily function? How? (Chest pain, [place], [place], pneumonia, PE, COPD, DKA, ARF, appy, cholecystitis, CVA, Diverticulitis, Homicidal, Suicidal, threat to staff... and all critical care pts) @ -No - Lab Data Result diagrams: 09/11/24 17:23 09/11/24 17:23 Lab Results 07/15/25 07/15/25 Range/Units 17:23 17:23 WBC 3.72 L (4.50-10.00) 10*3/uL RBC 4.28 (4.10-5.20) 10*6/uL Hgb 13.1 (12.0-15.0) g/dL Hct 38.3 (37.2-46.3) % MCV 89.5 (80.0-97.0) fL MCH 30.6 (27.0-32.0) pg MCHC 34.2 (32.0-37.0) g/dL Plt Count 243 (140-440) 10*3/uL MPV 8.4 L (9.5-12.2) fL Immature Gran % (Auto) 1.1 % Neutrophils % 59.7 % Lymphocytes % 24.7 % Monocytes % 11.0 % Eosinophils % 3.0 % Basophils % 0.5 % Immature Gran # 0.04 (0.00-0.04) 10*3/uL Neutrophils # 2.22 (1.80-7.70) 10*3/uL Lymphocytes # 0.92 (0.90-5.00) 10*3/uL Monocytes # 0.41 (0.20-1.00) 10*3/uL Eosinophils # 0.11 (0.04-0.35) 10*3/uL Basophils # 0.02 (0.00-0.10) 10*3/uL Sodium 139 (137-145) mmol/L Potassium 5.4 H (3.5-5.1) mmol/L Chloride 106 (98-107) mmol/L Carbon Dioxide 25 (22-30) mmol/L Anion Gap 8 mmol/L BUN 19 H (7-17) mg/dL Creatinine 0.48 L (0.52-1.04) mg/dL Est GFR (CKD-EPI)AfAm >90 (>60 ml/min/1.73 sqM) Est GFR (CKD-EPI)NonAf >90 (>60 ml/min/1.73 sqM) Glucose 95 (74-99) mg/dL Calcium 9.0 (8.4-10.2) mg/dL Total Bilirubin 0.9 (0.2-1.3) mg/dL AST 35 (14-36) U/L ALT 15 (4-34) U/L Alkaline Phosphatase 52 (38-126) U/L Total Protein 6.6 (6.3-8.2) g/dL Albumin 3.8 (3.5-5.0) g/dL Disposition Clinical Impression: Intractable pain, Lymphedema Disposition: ADMITTED IP TO THIS [facility] Condition: Stable Is patient prescribed a controlled substance at d/c from ED?: No Time of Disposition: 19:24 Decision to Admit Reason: Admit from EC Decision Date: 09/11/24 Decision Time: 19:25
--- NOTE | 2024-09-11 18:15 | US ---
EXAMINATION TYPE: US venous doppler duplex UE RT DATE OF EXAM: 09/11/2024 COMPARISON: 04/2024 CLINICAL INDICATION: Female, 54 years old with history of arm swelling; arm swelling since mar. state s started when radiation started TECHNIQUE: Grayscale, color Doppler and spectral Doppler imaging of the upper extremity. SIDE PERFORMED: right VESSELS IMAGED: IJV Subclavian Vein Axilla Vein Brachial Vein(s) Radial Paired Veins Ulnar Paired Veins Cephalic Vein* Basilic Vein* (*superficial vessels) FINDINGS: Exam is slightly limited due to swelling and patient pain Right Arm: appears negative for dvt as best seen today. unable to visualize ulnar vns Grayscale, color doppler, spectral doppler imaging performed of the deep veins of the upper extremiti es. IMPRESSION: No visualized deep venous thrombosis of the right upper extremity. Unable to visualize the ulnar vein with subcutaneous edema identified. [facility], , 09/11/2024 6:13 PM
[2024-09-11] MEDS ORDERED: NALOXONE 0.4 MG/ML 1 ML VIAL IV PRN (19:26)
[2024-09-11] MEDS ORDERED: ALBUTEROL NEBULIZED 2.5 MG/3 ML INHALATION PRN (20:06)
[2024-09-11] MEDS: clonazePAM 1 MG TAB PO SCH (20:47)
[2024-09-11] MEDS: CYCLOBENZAPRINE 10 MG TAB PO PRN (20:47)
[2024-09-11] MEDS: buPROPion SR 150 MG TABLET.ER PO SCH (20:47)
[2024-09-11] MEDS: HYDROmorphone 1 MG/ML 1 ML SYRINGE IVP PRN (22:09)
[2024-09-12] MEDS: IBUPROFEN 800 MG TAB PO PRN (04:42)
[2024-09-12] MEDS ORDERED: FORMOTEROL FUMARATE 20 MCG/2 ML NEBU INHALATION SCH (08:00)
[2024-09-12] MEDS: DESVENLAFAXINE SUCCINATE 50 MG TAB.ER.24H PO SCH (09:01)
[2024-09-12] MEDS: LURASIDONE 60 MG TAB PO SCH (09:01)
[2024-09-12] MEDS: LACTULOSE 200 GM/300 ML (FROM 1/2 GAL JUG) PO SCH (09:10)
[2024-09-12] MEDS: MONTELUKAST 10 MG TAB PO SCH (09:12)
[2024-09-12] MEDS: IPRATROPIUM-ALBUTEROL 3 ML NEB INHALATION SCH (09:24)
[2024-09-12] MEDS: TIOTROPIUM 2.5 MCG INHALER INHALATION SCH (09:24)
[2024-09-12] MEDS: SYMBICORT 160-4.5 MCG INHALER INHALATION SCH (09:24)
[2024-09-12 10:41] LABS: Basophils # (A) 0.02 X 10*3/uL (0.00-0.10); Basophils % (A) 0.5 %; Eosinophils # (A) 0.11 X 10*3/uL (0.04-0.35); Eosinophils % (A) 2.9 %; HCT 38.5 % (37.2-46.3); HGB 12.5 g/dL (12.0-15.0); Immature Grans, Automated 1.00 %; Lymphocytes # (A) 0.93 X 10*3/uL (0.90-5.00); Lymphocytes % (A) 24.2 %; MCH 30.2 pg (27.0-32.0); MCHC 32.5 g/dL (32.0-37.0); MCV 93.0 FL (80.0-97.0); Monocytes # (A) 0.38 X 10*3/uL (0.20-1.00); Monocytes % (A) 9.9 %; NRBC Per 100 WBC 0 X 10*3/uL (0.00-0.01); Neutrophils # (A) 2.36 X 10*3/uL (1.80-7.70); Neutrophils % (A) 61.5 %; Platelet Count 235 X 10*3/uL (140-440); RBC 4.14 X 10*6/uL (4.10-5.20); RDW 13.1 % (11.5-14.5); WBC 3.84 X 10*3/uL (4.50-10.00)
[2024-09-12 10:46] LABS: Anion Gap 9.90 mmol/L (4.00-12.00); BUN/Creat Ratio 29.00 Ratio (12.00-20.00); Blood Urea Nitrogen 17.4 mg/dL (9.0-27.0); Calcium 8.6 mg/dL (8.7-10.3); Carbon Dioxide 23.1 mmol/L (21.6-31.8); Chloride 107 mmol/L (96-109); Glucose 94 mg/dL (70-110); Potassium 4.1 mmol/L (3.5-5.5); Sodium 140 mmol/L (135-145)
[2024-09-12] MEDS: clonazePAM 1 MG TAB PO SCH (11:13)
--- NOTE | 2024-09-12 15:48 | HP ---
HISTORY AND PHYSICAL HISTORY OF PRESENT ILLNESS: A 54-year-old white female came to the emergency room with severe swelling in the right arm rule out every day retractable pain and severe swelling to the right extremity. She has recently had radiation treatment for breast cancer of the right axilla, recurrence of her breast cancer. Pain is uncontrolled. She is crying all the time. Ultrasound showed negative clots. She has severe swelling of right arm is about twice the size of the left arm entire arm. HOME MEDICINES: Pristiq 100 mg daily, Advair inhaler, albuterol inhaler, Flexeril, Singulair 10 mg daily, Latuda 120 mg daily, Wellbutrin XR 150 b.i.d., Klonopin 2 mg t.i.d., Percocet 7.5 two tablets t.i.d., and tramadol 50 t.i.d. ALLERGIES: To morphine. PAST MEDICAL HISTORY: Asthma, cancer, GERD, rheumatoid arthritis, carpal tunnel syndrome, overactive bladder, opening of glaucoma, breast cancer, bipolar, depression, and current everyday smoker. She is very anxious, nervous, crying and with severe pain. PHYSICAL EXAMINATION: CARDIOVASCULAR: S1 and S2. LUNGS: Decreased breath sounds. NECK: Supple. HEENT: Normocephalic, atraumatic. EXTREMITIES: Extremity shows severe swelling of the right arm with redness of the entire arm. She is neurovascularly intact in the hand at this time. She has cervical lumbar tenderness. NEUROLOGIC: Cranial nerves intact. PSYCH: Fair mood and affect. Appears depressed and crying and anxious. VITAL SIGNS: Temperature 97.9, blood pressure is 110 to 120s/60s to 90s, respiratory rate 16 to 18, pulse 67 to 96, and O2 99%. ASSESSMENT: Severe lymphedema of the right arm, possible cellulitis of the arm, retractable pain for the lymphedema in the right arm, breast cancer with right axilla recurrence, and severe chronic obstructive pulmonary disease. Prognosis guarded. Wait for multiple surgeries to assess the right arm including pain control, Vascular and Infectious Disease. Please see further orders. MMODL / IJN: [id number] /
--- NOTE | 2024-09-12 17:29 | P.GSCN ---
History of Present Illness History of present illness: 54-year-old white female patient has a history of breast cancer and lymph node dissection in the past she had radiation and the beginning at [facility] patient has a lymphedema for the past 6 months. Patient has a venous ultrasound done there is no evidence for deep vein thrombosis. Chest examination good into both lungs. Second sound present Abdomen soft nontender vascular patient has a radial femoral pulses present patient has a marked lymphedema of the right lower extremity post radiation and lymph node right axilla Plan is patient needs a right arm compression sleeve and for pillow elevation Patient is on pain management we will follow with you Past Medical History Past Medical History: Asthma, Cancer, GERD/Reflux, Rheumatoid Arthritis (RA) Additional Past Medical History / Comment(s): CARPAL TUNNEL AMANDA. Overactive Bladder. OPEN ANGLE GLAUCOMA, Breast Cancer 2021 History of Any Multi-Drug Resistant Organisms: None Reported Past Surgical History: Orthopedic Surgery Additional Past Surgical History / Comment(s): bilateral hand Past Anesthesia/Blood Transfusion Reactions: No Reported Reaction Past Psychological History: Bipolar, Depression Smoking Status: Current some day smoker Past Alcohol Use History: None Reported Past Drug Use History: Marijuana Medications and Allergies Home Medications Medication Instructions Recorded Confirmed Type Ibuprofen [Motrin] 800 mg PO Q8HR PRN 06/02/14 09/11/24 History Albuterol Sulfate [Albuterol 2 puff INHALATION RT-Q4H PRN 09/11/24 09/11/24 History Sulfate Hfa] Cyclobenzaprine [Flexeril] 10 mg PO TID PRN 09/11/24 09/11/24 History Desvenlafaxine Succinate [Pristiq] 100 mg PO DAILY 09/11/24 09/11/24 History Fluticasone Propion/Salmeterol 1 puff INHALATION RT-BID 09/11/24 09/11/24 History [Advair Hfa 115-21 Mcg Inhaler] Lactulose 10 gm PO DAILY 09/11/24 09/11/24 History Lurasidone HCl [Latuda] 120 mg PO DAILY 09/11/24 09/11/24 History Montelukast [Singulair] 10 mg PO DAILY 09/11/24 09/11/24 History Umeclidinium Brm/Vilanterol Tr 1 puff INHALATION RT-DAILY 09/11/24 09/11/24 History [Anoro Ellipta 62.5-25 Mcg INH] buPROPion SR [Wellbutrin SR] 150 mg PO BID 09/11/24 09/11/24 History clonazePAM [KlonoPIN] 2 mg PO TID 09/11/24 09/11/24 History oxyCODONE-APAP 7.5-325MG [Percocet 2 tab PO TID 09/11/24 09/11/24 History 7.5-325 mg] traMADol HCL 50 mg PO TID PRN 09/11/24 09/11/24 History Allergies Allergy/AdvReac Type Severity Reaction Status Date / Time morphine Allergy Rash/Hives Verified 09/11/24 18:10 Surgical - Exam Vital Signs Temp Pulse Resp BP Pulse Ox 97.9 F 96 18 110/68 98 09/11/24 15:25 09/11/24 15:25 09/11/24 15:25 09/11/24 15:25 09/11/24 15:25 Results - Labs 09/12/24 06:11 09/12/24 06:11 Abnormal Lab Results - Last 24 Hours (Table) 09/11/24 09/11/24 09/12/24 Range/Units 17:23 17:23 06:11 WBC 3.72 L 3.84 L (4.50-10.00) 10*3/uL MPV 8.4 L 8.5 L (9.5-12.2) fL Potassium 5.4 H (3.5-5.1) mmol/L BUN 19 H (7-17) mg/dL Creatinine 0.48 L (0.52-1.04) mg/dL BUN/Creatinine Ratio (12.00-20.00) Ratio Calcium (8.7-10.3) mg/dL 09/12/24 Range/Units 06:11 WBC (4.50-10.00) 10*3/uL MPV (9.5-12.2) fL Potassium (3.5-5.1) mmol/L BUN (7-17) mg/dL Creatinine (0.52-1.04) mg/dL BUN/Creatinine Ratio 29.00 H (12.00-20.00) Ratio Calcium 8.6 L (8.7-10.3) mg/dL Diabetes panel 09/11/24 09/12/24 Range/Units 17:23 06:11 Sodium 139 140 (137-145) mmol/L Potassium 5.4 H 4.1 (3.5-5.1) mmol/L Chloride 106 107 (98-107) mmol/L Carbon Dioxide 25 23.1 (22-30) mmol/L BUN 19 H 17.4 (7-17) mg/dL Creatinine 0.48 L 0.6 (0.52-1.04) mg/dL Glucose 95 94 (74-99) mg/dL Calcium 9.0 8.6 L (8.4-10.2) mg/dL AST 35 (14-36) U/L ALT 15 (4-34) U/L Alkaline Phosphatase 52 (38-126) U/L Total Protein 6.6 (6.3-8.2) g/dL Albumin 3.8 (3.5-5.0) g/dL Calcium panel 09/11/24 09/12/24 Range/Units 17:23 06:11 Calcium 9.0 8.6 L (8.4-10.2) mg/dL Albumin 3.8 (3.5-5.0) g/dL Pituitary panel 09/11/24 09/12/24 Range/Units 17:23 06:11 Sodium 139 140 (137-145) mmol/L Potassium 5.4 H 4.1 (3.5-5.1) mmol/L Chloride 106 107 (98-107) mmol/L Carbon Dioxide 25 23.1 (22-30) mmol/L BUN 19 H 17.4 (7-17) mg/dL Creatinine 0.48 L 0.6 (0.52-1.04) mg/dL Glucose 95 94 (74-99) mg/dL Calcium 9.0 8.6 L (8.4-10.2) mg/dL Adrenal panel 09/11/24 09/12/24 Range/Units 17:23 06:11 Sodium 139 140 (137-145) mmol/L Potassium 5.4 H 4.1 (3.5-5.1) mmol/L Chloride 106 107 (98-107) mmol/L Carbon Dioxide 25 23.1 (22-30) mmol/L BUN 19 H 17.4 (7-17) mg/dL Creatinine 0.48 L 0.6 (0.52-1.04) mg/dL Glucose 95 94 (74-99) mg/dL Calcium 9.0 8.6 L (8.4-10.2) mg/dL Total Bilirubin 0.9 (0.2-1.3) mg/dL AST 35 (14-36) U/L ALT 15 (4-34) U/L Alkaline Phosphatase 52 (38-126) U/L Total Protein 6.6 (6.3-8.2) g/dL Albumin 3.8 (3.5-5.0) g/dL
[2024-09-13] MEDS: HYDROmorphone 1 MG/ML 1 ML SYRINGE IM STA (06:50)
--- NOTE | 2024-09-13 14:29 | P.PAINCN ---
History of Present Illness - History of Present Illness 54-year-old pleasant lady with history of metastatic breast cancer and axillary lymph node resection has lymphedema and swelling of right upper extremity for quite some time. Pain management has been consulted for pain management of right upper extremity pain. Patient relates pain has been there all the time. Aching in character. Intensity 10/10. Any movement of the upper extremity increases her pain significantly. No new motor or sensory deficits. Past Medical History Past Medical History: Asthma, Cancer, GERD/Reflux, Rheumatoid Arthritis (RA) Additional Past Medical History / Comment(s): CARPAL TUNNEL AMANDA. Overactive Bladder. OPEN ANGLE GLAUCOMA, Breast Cancer 2021 History of Any Multi-Drug Resistant Organisms: None Reported Past Surgical History: Orthopedic Surgery Additional Past Surgical History / Comment(s): bilateral hand Past Anesthesia/Blood Transfusion Reactions: No Reported Reaction Past Psychological History: Bipolar, Depression Smoking Status: Current some day smoker Past Alcohol Use History: None Reported Past Drug Use History: Marijuana Medications and Allergies Home Medications Medication Instructions Recorded Confirmed Type Ibuprofen [Motrin] 800 mg PO Q8HR PRN 06/02/14 09/11/24 History Albuterol Sulfate [Albuterol 2 puff INHALATION RT-Q4H PRN 09/11/24 09/11/24 History Sulfate Hfa] Cyclobenzaprine [Flexeril] 10 mg PO TID PRN 09/11/24 09/11/24 History Desvenlafaxine Succinate [Pristiq] 100 mg PO DAILY 09/11/24 09/11/24 History Fluticasone Propion/Salmeterol 1 puff INHALATION RT-BID 09/11/24 09/11/24 H istory [Advair Hfa 115-21 Mcg Inhaler] Lactulose 10 gm PO DAILY 09/11/24 09/11/24 History Lurasidone HCl [Latuda] 120 mg PO DAILY 09/11/24 09/11/24 History Montelukast [Singulair] 10 mg PO DAILY 09/11/24 09/11/24 History Umeclidinium Brm/Vilanterol Tr 1 puff INHALATION RT-DAILY 09/11/24 09/11/24 History [Anoro Ellipta 62.5-25 Mcg INH] buPROPion SR [Wellbutrin SR] 150 mg PO BID 09/11/24 09/11/24 History clonazePAM [KlonoPIN] 2 mg PO TID 09/11/24 09/11/24 History oxyCODONE-APAP 7.5-325MG [Percocet 2 tab PO TID 09/11/24 09/11/24 History 7.5-325 mg] traMADol HCL 50 mg PO TID PRN 09/11/24 09/11/24 History Allergies Allergy/AdvReac Type Severity Reaction Status Date / Time morphine Allergy Rash/Hives Verified 09/11/24 18:10 Physical Exam Vitals: Vital Signs Temp Pulse Pulse Resp BP BP Pulse Ox 09/13/24 13:32 97.7 F 71 16 98/67 93 L 09/13/24 07:42 98.2 F 64 16 114/75 98 09/13/24 01:59 97.8 F 73 16 106/73 95 09/12/24 20:31 68 17 09/12/24 18:54 98 F 68 17 108/70 94 L Intake and Output 09/12/24 09/13/24 09/13/24 22:59 06:59 14:59 Other: Voiding Method Toilet # Voids 3 4 Limited physical exam. Right upper extremity swelling all over from axilla to fingers. Motor strength of fingers wrist elbow shoulder appears to be 5/5 but limited secondary to pain and swelling. Sensation to touch is grossly intact. Results CBC & Chem 7: 09/12/24 06:11 09/12/24 06:11 Assessment and Plan Assessment: Right upper extremity pain Right upper extremity lymphedema Plan: Patient had been on Percocet 7.5 mg 2 pills 3 times a day for many years according to her. Patient is definitely opioid tolerant. Followings are my suggestions- 1. Discontinue Percocet. 2. Fentanyl patch 100 mcg/h (starting on relatively high dose because of opioid tolerance) 3. Discontinue tramadol. 4. Percocet 7.5 mg 1 p.o. 3 times a day as needed. 5. Continue IV Dilaudid while in hospital. 6. Gabapentin 300 mg 1 pill 3 times a day to start with. 7. Continue Flexeril. 8. Continue Pristiq. PQRS Measure Charge Sheet - Pain Location Right Arm Non-Pharmacological Interventions: Darkened Room, Distraction, Pos ition/Reposition Pharmacological Interventions: Discuss Pain Med Options, PRN Medication PQRS Narrative: Smoking Status Current every day smoker Blood Pressure [Left Arm] 98/67 Blood Pressure [Supine] 106/73 Blood Pressure 117/90 Pain Intensity [Right Arm] 10 Pain Intensity 8 Pain Scale Used Numeric (1 - 10) Scale Used Numeric (1 - 10) Home Medications: Ambulatory Orders Ibuprofen [Motrin] 800 mg PO Q8HR PRN 06/02/14 Albuterol Sulfate [Albuterol Sulfate Hfa] 2 puff INHALATION RT-Q4H PRN 09/11/24 Cyclobenzaprine [Flexeril] 10 mg PO TID PRN 09/11/24 Desvenlafaxine Succinate [Pristiq] 100 mg PO DAILY 09/11/24 Fluticasone Propion/Salmeterol [Advair Hfa 115-21 Mcg Inhaler] 1 puff INHALATION RT-BID 09/11/24 Lactulose 10 gm PO DAILY 09/11/24 Lurasidone HCl [Latuda] 120 mg PO DAILY 09/11/24 Montelukast [Singulair] 10 mg PO DAILY 09/11/24 Umeclidinium Brm/Vilanterol Tr [Anoro Ellipta 62.5-25 Mcg INH] 1 puff INHALATION RT-DAILY 09/11/24 buPROPion SR [Wellbutrin SR] 150 mg PO BID 09/11/24 clonazePAM [KlonoPIN] 2 mg PO TID 09/11/24 oxyCODONE-APAP 7.5-325MG [Percocet 7.5-325 mg] 2 tab PO TID 09/11/24 traMADol HCL 50 mg PO TID PRN 09/11/24
[2024-09-13] MEDS: LURASIDONE 60 MG TAB PO SCH (21:15)
[2024-09-13] MEDS: GABAPENTIN 300 MG CAP PO SCH (21:16)
[2024-09-14] MEDS: oxyCODONE-APAP 7.5-325MG 1 EACH TAB PO PRN (05:58)
[2024-09-14] MEDS: LACTULOSE 20 GM/30 ML CUP PO SCH (09:17)
--- NOTE | 2024-09-15 00:45 | PN ---
PROGRESS NOTE DATE OF SERVICE: 09/14/2024 SUBJECTIVE: Pain is under better control on the high dose Duragesic patch keep her on that and Percocet for breakthrough every 8 hours. Prognosis is guarded. Ambulate as tolerated. Breathing better. lymphedema. Pain Management consult done. The patient will possibly go home as she is better at this time. Possibly discharge home in the morning. MMODL / IJN: [id number] /
[2024-09-15 07:28] VITALS: BP 132/81; PULSE 67; RESP 15; TEMP 97.6
== END 2024-09-15 12:56 | disposition home or self-care (01) ==
LOC: EC 15:24 → 4SSUR 19:32
PROVIDERS: ADMIT Family Medicine; ATTEND Family Medicine
DX: I89.0 Lymphedema, not elsewhere classified (principal); M79.601 Pain in right arm; J44.89 Other specified chronic obstructive pulmonary disease; F17.200 Nicotine dependence, unspecified, uncomplicated; N32.81 Overactive bladder; M06.9 Rheumatoid arthritis, unspecified; Z79.51 Long term (current) use of inhaled steroids; Z79.899 Other long term (current) drug therapy; Z88.5 Allergy status to narcotic agent; Z85.3 Personal history of malignant neoplasm of breast; Z92.3 Personal history of irradiation
CPT/HCPCS: 96376 ×4; 96372; 96374; 99284; 36415; 94640 ×4; 80053; 80048; 85025 ×2; 93971; G0378 ×5; S0106 ×5; J1171 ×4